=== PATIENT | female | born 1995 | race Caucasian/White ===

== ENCOUNTER → 2018-10-11 09:34 | Outpatient (CLI) | payer OTHER, MEDICAID, SELFPAY ==
[2018-10-11 10:18] LABS: Appearance Urine UA CLOUDY; Bilirubin Urine UA NEGATIVE (NEGATIVE); Color Urine UA YELLOW; Glucose Urine UA NEGATIVE (Negative); Ketones Urine UA NEGATIVE (NEGATIVE); Leukocyte Esterase Urine UA NEGATIVE (NEGATIVE); Nitrite Urine UA NEGATIVE (Negative); Occult Blood Urine UA NEGATIVE (Negative); Protein Urine UA NEGATIVE (Negative); Urobilinogen Urine UA 0.2 E.U./dL (0.2)
[2018-10-11 10:26] LABS: Add Manual Diff / Slide Review NO; Basophils Absolute Auto 0 /uL (0-100); Basophils Percent Auto 0.3 % (0-2); Eosinophils Absolute Auto 100 /uL (0-450); Eosinophils Percent Auto 1.2 % (2-4); Hematocrit 40.8 % (36-46); Hemoglobin 14.3 g/dL (12.0-16.0); Lymphocytes Absolute Auto 1500 /uL (1100-4500); Lymphocytes Percent Auto 16.9 % (25-40); Mean Corpuscular HGB Conc 35.1 % (30-36); Mean Corpuscular Hemoglobin 31.6 PG (26-34); Mean Corpuscular Volume 90.2 fL (80-100); Monocytes Absolute Auto 400 /uL (0-900); Monocytes Percent Auto 4.3 % (3-14); Neutrophils Absolute Auto 6900 /uL (1500-7000); Neutrophils Percent Auto 77.3 % (50-75); Platelet Count 234 X10^3/uL (150-400); Red Blood Cell Count 4.52 X10^6/uL (4.0-5.2)
[2018-10-11 11:33] LABS: Hepatitis B Surface Antigen NEGATIVE s/c (NEGATIVE); Rubella Antibody IgG 66.4 IU/mL (>15)
[2018-10-11 11:49] LABS: HIV 1 and 2 Antibody NEGATIVE (NEGATIVE); Hep C Virus Ab w/Reflex Quant NEGATIVE s/c (NEGATIVE)
[2018-10-13 18:13] LABS: Varicella IgG Antibody < 135.00 Index (< 135.00)
[2018-10-13 19:16] LABS: RPR Screen Nonreactive (Nonreactive)
== END ==
PROVIDERS: Visit Provider Family Medicine
DX: Z34.91 Encounter for supervision of normal pregnancy, unspecified, first trimester (principal)
CPT/HCPCS: 36415; 80055; 81003; 86703; 86787; 86803; 86850; 86900; 86901; 87086

== ENCOUNTER → 2018-12-26 09:05 | Outpatient (CLI) | payer OTHER, MEDICAID, SELFPAY ==
--- NOTE | 2018-12-26 09:06 | DI.US.S_ITS ---
PROCEDURE: US OB >= 14 WEEKS FETUS INDICATIONS: ANATOMIC SURVEY OUTSIDE/PRIOR DATING DATA: Last menstrual period (LMP): 08/09/18. LMP-based estimated date of delivery (LINDA): 05/16/19. First dating scan (date and location): 12/26/18, this study.. Estimated date of delivery (LINDA) from first dating scan: 05/10/19. TECHNIQUE: Real-time scanning was performed of the fetus, with image documentation and biometric measurements. Endovaginal scanning: Not needed for this study COMPARISON: None. FINDINGS: General: A single living intrauterine gestation is present. Presentation: Breech. Placenta: Placental position is without previa. Amniotic fluid index: 16.2 cm, normal range is 5-24 cm. heart rate: 150 beats per minute. Maternal cervical canal: 3.5 cm long. Normal lower limit is 2.5 cm. biometrics: Biparietal diameter: 4.8 cm, 20 weeks 3 days Head circumference: 18.1 cm, 20 weeks 4 days Abdominal circumference: 15.6 cm, 21 weeks 0 days Femur length: 3.4 cm, 20 weeks 5 days Estimated gestational age from initial scan: not applicable. Composite gestational age from present scan: 20 weeks 5 days 19 weeks 6 days Estimated weight and percentile: 380 g, 92nd percentile Measurement variability for biometric dating: +/- 7 days from 14 weeks to 15 weeks 6 days gestation, +/- 10 days from 16 weeks to 21 weeks 6 days gestation, +/- 2 weeks from 22 weeks to 27 weeks 6 days gestation, +/- 3 weeks for 28 weeks gestation or later. weight reference: 4500 g or EFW >90/95% is considered macrosomia or large for gestational age. EFW <10% is small for gestational age. EFW 5% or less is considered intra-uterine growth restriction. Anatomic survey: Neuro: Ventricles are non-dilated at less than 10 mm. Cisterna magna is normal at 3-11 mm. Cerebellum is normal in size and morphology. Nuchal skin fold: Normal at less than 6 mm between 14-21 weeks gestational age. Face: Nose and lips, facial profile are normal. Spine: No evidence for spina bifida. Heart: 4-chambered heart is present, with normal ventricular outflow tracts. Diaphragm: Diaphragm is intact. Stomach: Left-sided stomach is present. Kidneys: No hydronephrosis. Normal is less than 5 mm in 2nd trimester, less than 7 mm in 3rd trimester. Cord: 3-vessel cord has orthotopic insertion. Bladder: Normal in size. Extremities: All 4 extremities identified. IMPRESSION: Appropriate interval growth, no anomaly seen. The delivery date is centered on 05/10/19. Current presentation is breech. Dictated by: Jae Biswas M.D. on 12/26/2018 at 11:23 Approved by: Jae Biswas M.D. on 12/26/2018 at 11:27
== END ==
PROVIDERS: PCP Family Medicine; Visit Provider Family Medicine
DX: Z34.02 Encounter for supervision of normal first pregnancy, second trimester (principal); Z3A.20 20 weeks gestation of pregnancy
CPT/HCPCS: 76811

== ENCOUNTER → 2019-02-27 10:20 | Outpatient (CLI) | payer OTHER, MEDICAID, SELFPAY ==
[2019-02-27 12:03] LABS: Hematocrit 39.9 % (36-46); Hemoglobin 13.8 g/dL (12.0-16.0)
[2019-02-27 12:46] LABS: GTT (PREG) 1 Hour PP 50gm Dose 77 mg/dL (76-139)
== END ==
PROVIDERS: Visit Provider Family Medicine
DX: Z34.90 Encounter for supervision of normal pregnancy, unspecified, unspecified trimester (principal); Z3A.28 28 weeks gestation of pregnancy
CPT/HCPCS: 36415; 82950; 85014; 85018

== ENCOUNTER → 2019-04-24 08:25 | Outpatient (CLI) | payer OTHER, MEDICAID, SELFPAY ==
[2019-04-25 11:55] LABS: Strep Grp B PCR NEG for Grp B Strep
== END ==
PROVIDERS: PCP Nurse Practitioner Family; Visit Provider Family Medicine
DX: Z34.03 Encounter for supervision of normal first pregnancy, third trimester (principal); Z3A.36 36 weeks gestation of pregnancy
CPT/HCPCS: 87653

== ENCOUNTER 2019-05-14 07:51 | Inpatient (IN) | payer OTHER, MEDICAID, SELFPAY ==
[2019-05-14 11:51] VITALS: BP 110/70
[2019-05-14 11:52] LABS: Add Manual Diff / Slide Review NO; Basophils Absolute Auto 100 /uL (0-100); Basophils Percent Auto 0.3 % (0-2); Eosinophils Absolute Auto 0 /uL (0-450); Eosinophils Percent Auto 0.1 % (2-4); Hematocrit 47.2 % (36-46); Hemoglobin 16.7 g/dL (12.0-16.0); Lymphocytes Absolute Auto 1700 /uL (1100-4500); Lymphocytes Percent Auto 10.2 % (25-40); Mean Corpuscular HGB Conc 35.4 % (30-36); Mean Corpuscular Hemoglobin 32.7 PG (26-34); Mean Corpuscular Volume 92.3 fL (80-100); Monocytes Absolute Auto 300 /uL (0-900); Monocytes Percent Auto 1.9 % (3-14); Neutrophils Absolute Auto 14200 /uL (1500-7000); Neutrophils Percent Auto 87.5 % (50-75); Platelet Count 228 X10^3/uL (150-400); Red Blood Cell Count 5.12 X10^6/uL (4.0-5.2); Red Cell Distribution Width 12.8 % (11.6-14.8); White Blood Cell Count 16.2 X10^3/uL (4.5-11.0)
--- NOTE | 2019-05-14 11:59 | PM.OBHP.1 ---
OB HPI Date/Time Date of admission: 05/14/19 Date Patient Seen: 05/14/19 Time Patient Seen: 12:30 History of Present Condition Chief complaint: maternity : 1 Para: 0 Estimated Date of Delivery: 05/16/19 Estimated Gestational Age (weeks): 39w5d Narrative: Khadra Adame is a 23 year old at 39w5d who presented with regular painful contractions. Pt reports having mild contractions starting last night, increasing in frequency and intensity since that time. No LOF. No vaginal bleeding. History of Present care: good care, initiated at week # (9) and pounds weight gain (41) Dating criteria: LMP confirmed by 1st trimester US Ultrasounds: normal 1st trimester US and normal mid trimester US Obstetrical complications: none Medical complications: none Preadmission Labs Blood type: A (+) positive -: Antibody screen: negative, GBS status: negative, HBsAG: negative, HIV: negative and RPR/VDLR: negative -: Chlamydia screen: not detected and Gonorrhea screen: not detected -: Rubella: immune and Varicella: not immune HCT: 39.9 1 hr GTT: 77 Evaluation Evaluation Baseline heart rate: 130 Variability: Moderate (11-25) monitor accelerations: Present monitor decelerations: Absent Contraction Frequency (minutes): 3 Uterine Contraction Intensity: Strong/Firm Category of Tracing: I Cervical dilation (cm): 4 Cervical effacement (%): 100 station: 0 Laboratory results: Laboratory Tests 05/14/19 11:35 WBC 16.2 H RBC 5.12 Hgb 16.7 H Hct 47.2 H MCV 92.3 MCH 32.7 MCHC 35.4 RDW 12.8 Plt Count 228 Neut % (Auto) 87.5 H Lymph % (Auto) 10.2 L [place] % (Auto) 1.9 L Eos % (Auto) 0.1 L Baso % (Auto) 0.3 Neut # (Auto) 45975 H Lymph # (Auto) 1700 [place] # (Auto) 300 Eos # (Auto) 0 Baso # (Auto) 100 PFSH Family History (Updated 09/12/16 @ 00:00 by Conversion Provider) Brother Age: 29 Stress ulcer Father Age: 62 Essential hypertension Mother Age: 56 Cancer Social History Smoking Status: Former smoker Meds Home Medications and Allergies Home Medications Medication Instructions Recorded Confirmed Type omega 2-goo-mxp-fish oil [Fish Oil] 1,000 mg PO 1-2XD #0 01/30/17 05/14/19 History prenat.vits,naya,yjl-lbas-cehhz 1 tab PO DAILY 10/09/18 05/14/19 History Allergies Allergy/AdvReac Type Severity Reaction Status Date / Time amoxicillin Allergy Intermediate Difficulty Verified 05/14/19 14:19 Breathing cilantro Allergy Severe tougue Uncoded 04/24/19 08:24 swells, hard time breathing Exam Vital Signs (past 8 hours): - 05/14/19 11:51 Blood Pressure 110/70 Const General: cooperative and healthy appearing Orientation: alert and oriented x3 Resp Auscultation: clear to auscultation bilaterally Cardio Rate: regular rate Rhythm: regular rhythm Heart Sounds: S1 normal and S2 normal GI Palpation: No tender Other: gravid Extrem Other: trace edema Objective Labs Result Diagrams: 05/14/19 11:35 Labs: Laboratory Results - last 24 hr 05/14/19 11:35 WBC 16.2 H RBC 5.12 Hgb 16.7 H Hct 47.2 H MCV 92.3 MCH 32.7 MCHC 35.4 RDW 12.8 Plt Count 228 Neut % (Auto) 87.5 H Lymph % (Auto) 10.2 L [place] % (Auto) 1.9 L Eos % (Auto) 0.1 L Baso % (Auto) 0.3 Neut # (Auto) 42065 H Lymph # (Auto) 1700 [place] # (Auto) 300 Eos # (Auto) 0 Baso # (Auto) 100 Assessment and Plan Assessment and Plan Assessment and Plan narrative: 23yo at 39w5d who presented in active labor. Change from 2 to 4cm over 2 hours. without significant complications. GBS negative, Rh positive. - Expectant management, anticipate - FHT reassuring - GBS negative, no antibiotics indicated - Epidural for pain control if desired
--- NOTE | 2019-05-14 14:59 | PM.OBPRVD ---
Labor & Delivery Delivery date: 05/14/19 Intrapartal events: None Cervical ripening method: none Induction method: none Delivery augmentation: rupture of membranes Delivery monitor: external FHT Route of delivery: Episiotomy description: None L&D Laceration Description: Perineal - 2nd Degree and Labial Delivery repair: chromic Estimated blood loss (mL): 350 Anesthesia type: None Complications: None Narrative: PROCEDURE: at 38w5d presented in active labor and was admitted to Labor and Delivery. The patient progressed through the 1st stage over 1.5 hours in the hospital, 10 hours total. Pain was controlled by natural methods. The patient progressed through the 2nd stage over 13 minutes. AROM was performed when the pt was crowing with production of clear fluid. The pt delivered a viable baby girl with APGARs 9/9 at 12:28 via without complications. The baby was placed on maternal abdomen, and cord clamped and cut after it stopped pulsations. The perineum and vagina were inspected with bilateral labial lacerations and 2nd degree perineal laceration noted. The right sided labial laceration and perineal laceration were repaired with 3-O chromic in the usual fashion. Left labial laceration was not repaired due to already being hemostatic. PREPROCEDURE DIAGNOSIS: Intrauterine at 39w5d GBS negative RH positive POSTPROCEDURE DIAGNOSIS: Intrauterine at 39w5d, delivered Same as preprocedure ROM APPEARANCE: Clear BABY A WEIGHT: 6lb8.8oz, 2970g BABY A NUCHAL CORD: None PLACENTA DELIVERY TIME: 12:31 PLACENTA APPEARANCE: Intact Felt Baby 1: Infant gender: Female Presentation: vertex position: Right Occiput Anterior Placenta delivery description: Spontaneous cord vessel description: 3 Vessels score (1 min): 9 score (5 min): 9 Plan for aftercare: Normal care
[2019-05-14] MEDS: IBUPROFEN 600 MG TABLET PO ×2 (16:13→22:18)
[2019-05-15] MEDS: IBUPROFEN 600 MG TABLET PO ×3 (03:00→15:46)
--- NOTE | 2019-05-15 08:10 | P.DS_ITS ---
Discharge Providers Provider Date of admission: 05/14/19 07:51 Discharge Date: 05/15/19 Primary care physician: DIANA Stiles Consults: 05/15/19 13:42 Consult to Gps Field Data Collector Routine Comment: Discharge provider: Iman Rosales MD Summary Hospital Course Date Patient Seen: 05/15/19 Time Patient Seen: 07:40 Procedures: Spontaneous vaginal delivery Hospital Course: The patient presented in active labor. She progressed to complete without intervention. She used natural methods for pain control. AROM was performed with the patient was crying with production of clear fluid. She had a spontaneous vaginal delivery of a viable baby girl with Apgars 9 and 9. There are no complications with delivery. , she recovered well. At the time of discharge she was ambulating, voiding, passing flatus without difficulty. Her lochia was decreasing appropriately. Her pain was adequately controlled. She was breast-feeding with good latch. She will follow up with Dr. Byrd in 6 weeks for check. She is undecided regarding control. Peripartum Data Infant Delivery Method: Natural Vaginal Laceration description: Perineal - 2nd Degree Episiotomy description: None Procedures: Spontaneous vaginal delivery complications: none Nov[place] 1: Gender: Female Disposition of : home Discharge Diagnosis (1) Spontaneous vaginal delivery: Status: Acute Status at Discharge Cognitive/behavioral status at discharge: oriented Functional status at discharge: independent ambulation Overall status at discharge: patient is progressing back to baseline Time Spent with Patient Time attestation: Total time spent providing and/or coordinating discharge services: Time spent: Greater than 30 minutes Objective Labs Result Diagrams: 05/14/19 11:35 Labs: Laboratory Results - last 24 hr 05/14/19 05/14/19 11:35 11:35 WBC 16.2 H RBC 5.12 Hgb 16.7 H Hct 47.2 H MCV 92.3 MCH 32.7 MCHC 35.4 RDW 12.8 Plt Count 228 Neut % (Auto) 87.5 H Lymph % (Auto) 10.2 L [place] % (Auto) 1.9 L Eos % (Auto) 0.1 L Baso % (Auto) 0.3 Neut # (Auto) 74164 H Lymph # (Auto) 1700 [place] # (Auto) 300 Eos # (Auto) 0 Baso # (Auto) 100 Blood Type A Positive Antibody Screen Negative Discharge Plan Discharge Plan Patient Disposition: Home Discharge orders & Medications Prescriptions: New acetaminophen 325 mg Tablet 650 mg PO Q6HR PRN (Reason: Pain, Mild (1-3)) Qty: 30 RF: 0 docusate sodium [DOK] 100 mg Capsule 100 mg PO DAILY Qty: 30 RF: 0 ibuprofen 600 mg Tablet 600 mg PO Q6HR PRN (Reason: Pain, Mild (1-3)) Qty: 30 RF: 0 Continued omega 0-nnt-lyd-fish oil [Fish Oil] 1,000 MG capsule 1,000 mg PO 1-2XD Qty: 0 RF: 0 prenat.vits,naya,nfe-jrwj-lavql tablet 1 tab PO DAILY RF: 0 Follow up/Referrals: Guille Byrd MD [Physician] - 6 Weeks (June 25, Monday, at 10am with Dr. Byrd for 6 week post check) Wendi Martinez ARNP [Primary Care Provider] - Skin/Wound/Dressing Care Report to your healthcare provider any signs of infection, such as:: chills, fever, increased pain and unusual drainage Visit Report/Discharge Packet Instructions: DI for Labor and Delivery, Vaginal Stand Alone Forms: Discharge: Care Visit Report Forms: Patient Portal/API, Stroke Signs & Symptoms Discharge Data Primary Care Provider: Wendi Martinez
[2019-05-15 10:01] VITALS: BP 122/80; PULSE 63; RESP 19; TEMP 36.8
[2019-05-15] MEDS: PRENATAL VIT,CALC/IRON/FOLIC 1 TABLET 1 TAB PO (10:23)
[2019-05-15] MEDS: DERMOPLAST SPRAY 20% 60 ML 1 SPRAY TOP (10:24)
== END 2019-05-15 16:00 | disposition home or self-care (01) | DRG 560 ==
PROVIDERS: Family Medicine; Admitting Provider Family Medicine; PCP Nurse Practitioner Family; Visit Provider Family Medicine
DX: O70.1 Second degree perineal laceration during delivery (principal); O70.0 First degree perineal laceration during delivery; Z3A.39 39 weeks gestation of pregnancy; Z37.0 Single live birth
CPT/HCPCS: 36415; 59050; 59409; 85025; 86850; 86900; 86901; G0379

== ENCOUNTER → 2020-03-06 08:52 | Outpatient (CLI) | payer OTHER, MEDICAID, SELFPAY ==
--- NOTE | 2020-03-06 | DI.MRI.S_ITS ---
PROCEDURE: MR SHOULDER RT WO CON INDICATIONS: pain in right shoulder TECHNIQUE: Noncontrast oblique coronal T2 fast spin echo with fat saturation, oblique sagittal T1 spin echo and T2 fast spin echo with fat saturation, axial T1 spin echo and T2 fast spin echo with fat saturation through the shoulder. COMPARISON: None. FINDINGS: Image quality: Excellent. Rotator cuff: The supraspinatus, infraspinatus, subscapularis, and teres minor appear intact. There is magnetic susceptibility within the distal superior cuff suggestive of calcific tendinitis. Sagittal images demonstrate no fatty muscle atrophy. Bones and bursae: No bone marrow contusions or fractures. There is wnlz-nv-jpyrbwmh acromioclavicular joint degeneration. The acromion demonstrates conventional anatomy, without an os acromiale. Minimal subacromial-subdeltoid bursal fluid is present. Capsule and soft tissues: There is tearing within the superior, posterosuperior, and posterior labrum. In the absence of intra-articular contrast, the glenohumeral ligaments appear intact. The long head of the biceps tendon demonstrates normal location and morphology. The rotator interval appears normal, without fibrosis. The coracohumeral ligament is normal in thickness. IMPRESSION: 1. Tearing of the superior, posterosuperior, and posterior labrum with evaluation limited in the absence of intra-articular contrast. Further evaluation may be obtained with an MR arthrogram if clinically indicated. 2. Mild magnetic susceptibility within the distal superior cuff suggestive of calcific tendinitis. 3. Mild to moderate acromioclavicular joint degeneration with minimal subacromial/subdeltoid bursal fluid. Dictated by: Everton Root M.D. on 03/06/2020 at 11:05 Approved by: Everton Root M.D. on 03/06/2020 at 11:14
== END ==
PROVIDERS: PCP Nurse Practitioner Family; Referring Provider Nurse Practitioner Family; Visit Provider Nurse Practitioner Family
DX: M25.511 Pain in right shoulder (principal); M19.011 Primary osteoarthritis, right shoulder; S43.431A Superior glenoid labrum lesion of right shoulder, initial encounter
CPT/HCPCS: 73221

== ENCOUNTER → 2020-08-18 11:32 | Outpatient (CLI) | payer OTHER, MEDICAID, SELFPAY ==
[2020-08-18 12:54] LABS: Appearance Urine UA CLEAR; Bilirubin Urine UA NEGATIVE (NEGATIVE); Color Urine UA YELLOW; Glucose Urine UA NEGATIVE (Negative); Ketones Urine UA NEGATIVE (NEGATIVE); Leukocyte Esterase Urine UA NEGATIVE (NEGATIVE); Nitrite Urine UA NEGATIVE (Negative); Occult Blood Urine UA NEGATIVE (Negative); Protein Urine UA NEGATIVE (Negative); Specific Gravity Urine UA 1.015 (1.000-1.035); Urobilinogen Urine UA 0.2 E.U./dL (0.2)
[2020-08-18 12:57] LABS: Add Manual Diff / Slide Review NO; Basophils Absolute Auto 0 /uL (0-100); Basophils Percent Auto 0.4 % (0-2); Eosinophils Absolute Auto 100 /uL (0-450); Eosinophils Percent Auto 0.9 % (2-4); Hematocrit 38.9 % (36-46); Hemoglobin 13.2 g/dL (12.0-16.0); Lymphocytes Absolute Auto 1800 /uL (1100-4500); Lymphocytes Percent Auto 19.8 % (25-40); Mean Corpuscular HGB Conc 33.9 % (30-36); Mean Corpuscular Hemoglobin 31.6 PG (26-34); Mean Corpuscular Volume 93.3 fL (80-100); Monocytes Absolute Auto 300 /uL (0-900); Monocytes Percent Auto 3.6 % (3-14); Neutrophils Absolute Auto 6900 /uL (1500-7000); Neutrophils Percent Auto 75.3 % (50-75); Platelet Count 226 X10^3/uL (150-400); Red Blood Cell Count 4.17 X10^6/uL (4.0-5.2); Red Cell Distribution Width 14.2 % (11.6-14.8); White Blood Cell Count 9.1 X10^3/uL (4.5-11.0)
[2020-08-18 13:42] LABS: Hepatitis B Surface Antigen NEGATIVE s/c (NEGATIVE); Rubella Antibody IgG 44.3 IU/mL (>15)
[2020-08-18 13:59] LABS: HIV 1 & 2 Ab/Ag 4th Gen Combo NEGATIVE (NEGATIVE); Hep C Virus Ab w/Reflex Quant NEGATIVE s/c (NEGATIVE)
[2020-08-19 07:34] LABS: Varicella IgG Antibody <135 index (Immune >165)
[2020-08-19 08:30] LABS: RPR Screen Non Reactive (Non Reactive)
== END ==
PROVIDERS: PCP Nurse Practitioner Family; Referring Provider Family Medicine; Visit Provider Family Medicine
DX: Z34.81 Encounter for supervision of other normal pregnancy, first trimester (principal)
CPT/HCPCS: 36415; 80055; 81003; 86787; 86803; 86850; 86900; 86901; 87086; 87389

== ENCOUNTER → 2020-09-08 10:04 | Outpatient (CLI) | payer OTHER, MEDICAID, SELFPAY ==
--- NOTE | 2020-09-08 10:05 | DI.US.S_ITS ---
PROCEDURE: US OB >= 14 WEEKS FETUS INDICATIONS: ANATOMY OUTSIDE/PRIOR DATING DATA: First dating scan (date and location): 09/08/2020 . Estimated date of delivery (LINDA) from first dating scan: 01/23/2021 . TECHNIQUE: Real-time scanning was performed of the fetus, with image documentation and biometric measurements. Endovaginal scanning: No COMPARISON: [facility], , OB >= 14 WEEKS FETUS, 12/26/2018, 9:27. FINDINGS: General: A single living intrauterine gestation is present. Presentation: Transverse. Placenta: Placental position is anterior , without previa. Amniotic fluid index: 18.1 cm, normal range is 5-24 cm. heart rate: 155 beats per minute. Maternal cervical canal: 3.4 cm long. Normal lower limit is 2.5 cm. biometrics: Biparietal diameter: 21 weeks Head circumference: 20 weeks 5 days Abdominal circumference: 20 weeks 2 days Femur length: 19 weeks 5 days Estimated gestational age from initial scan: not applicable. Composite gestational age from present scan: 20 weeks 3 days Estimated weight and percentile: 331 g Measurement variability for biometric dating: +/- 7 days from 14 weeks to 15 weeks 6 days gestation, +/- 10 days from 16 weeks to 21 weeks 6 days gestation, +/- 2 weeks from 22 weeks to 27 weeks 6 days gestation, +/- 3 weeks for 28 weeks gestation or later. weight reference: 4500 g or EFW >90/95% is considered macrosomia or large for gestational age. EFW <10% is small for gestational age. EFW 5% or less is considered intra-uterine growth restriction. Anatomic survey: Neuro: Ventricles are non-dilated at less than 10 mm. Cisterna magna is normal at 3-11 mm. Cerebellum is normal in size and morphology. Nuchal skin fold: Normal at less than 6 mm between 14-21 weeks gestational age. Face: Nose and lips, facial profile are normal. Spine: No evidence for spina bifida. Heart: 4-chambered heart is present, with normal ventricular outflow tracts. Diaphragm: Diaphragm is intact. Stomach: Left-sided stomach is present. Kidneys: No hydronephrosis. Normal is less than 5 mm in 2nd trimester, less than 7 mm in 3rd trimester. Cord: 3-vessel cord has orthotopic insertion. Bladder: Normal in size. Extremities: All 4 extremities identified. IMPRESSION: 1. 20 week 3 day single living IUP. 2. Normal anatomic survey. Dictated by: Greg GUNTER Interpreted: Guille Lorenz MD on 09/08/2020 at 13:02 Approved by: Guille Lorenz M.D. on 09/08/2020 at 14:08
== END ==
PROVIDERS: PCP Nurse Practitioner Family; Referring Provider Family Medicine; Visit Provider Family Medicine
DX: Z34.82 Encounter for supervision of other normal pregnancy, second trimester (principal); Z3A.20 20 weeks gestation of pregnancy
CPT/HCPCS: 76811

== ENCOUNTER → 2020-11-09 10:28 | Outpatient (CLI) | payer OTHER, MEDICAID, SELFPAY ==
[2020-11-09 12:22] LABS: Hematocrit 40.4 % (36-46); Hemoglobin 14.1 g/dL (12.0-16.0)
[2020-11-09 13:06] LABS: GTT (PREG) 1 Hour PP 50gm Dose 52 mg/dL (76-139)
== END ==
PROVIDERS: PCP Nurse Practitioner Family; Referring Provider Family Medicine; Visit Provider Family Medicine
DX: Z34.82 Encounter for supervision of other normal pregnancy, second trimester (principal); Z3A.25 25 weeks gestation of pregnancy
CPT/HCPCS: 36415; 82950; 85014; 85018

== ENCOUNTER → 2020-12-29 08:45 | Outpatient (CLI) | payer OTHER, MEDICAID, SELFPAY ==
[2020-12-30 08:20] LABS: Strep Grp B PCR NEG for Grp B Strep
== END ==
PROVIDERS: PCP Nurse Practitioner Family; Visit Provider Family Medicine
DX: Z34.83 Encounter for supervision of other normal pregnancy, third trimester (principal); Z3A.36 36 weeks gestation of pregnancy
CPT/HCPCS: 87653

== ENCOUNTER 2021-01-30 16:58 | Inpatient (IN) | payer OTHER, MEDICAID, SELFPAY ==
[2021-01-30 19:45] LABS: Add Manual Diff / Slide Review NO; Basophils Absolute Auto 100 /uL (0-100); Eosinophils Absolute Auto 100 /uL (0-450); Eosinophils Percent Auto 0.6 % (2-4); Hematocrit 41.7 % (36-46); Hemoglobin 14.3 g/dL (12.0-16.0); Lymphocytes Absolute Auto 2600 /uL (1100-4500); Lymphocytes Percent Auto 21.7 % (25-40); Mean Corpuscular HGB Conc 34.4 % (30-36); Mean Corpuscular Hemoglobin 31.9 PG (26-34); Mean Corpuscular Volume 92.9 fL (80-100); Monocytes Absolute Auto 500 /uL (0-900); Monocytes Percent Auto 4.5 % (3-14); Neutrophils Absolute Auto 8600 /uL (1500-7000); Neutrophils Percent Auto 72.2 % (50-75); Platelet Count 168 X10^3/uL (150-400); Red Blood Cell Count 4.49 X10^6/uL (4.0-5.2); Red Cell Distribution Width 12.9 % (11.6-14.8)
[2021-01-30] MEDS: OXYTOCIN 10 UNIT/ML VIAL IM (19:58)
[2021-01-30] MEDS: LIDOCAINE 2% INJ MDV 20 ML (19:58)
[2021-01-30] MEDS: miSOPROStoL 200 MCG TABLET 1000 MCG PR (20:20)
[2021-01-30] MEDS: OXYTOCIN PREMIX 30 UNIT/500 ML PLAST..BAG 200 UNIT IV (20:30)
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
[2021-01-30] MEDS: TRANEXAMIC ACID 1,000 MG in SODIUM CHLORIDE 0.9% 100 ML 200 ML IV ×2 (20:50→23:10)
--- NOTE | 2021-01-30 20:59 | PM.PROC.1 ---
Procedures Date/Time Date of procedure: 01/30/21 Time of procedure: 21:00 General Procedure description: Delivery of viable male infant hemorrhage approximately IM Pitocin 10 units at delivery. Rectal Cytotec. TXA as well as Pitocin 30 units. Despite this bleeding was not controlled and patient was taken to the OR Stage I of labor approximately 3 hours: Patient rapidly progressed from 2-5 to complete over 3 hours. Patient's heart tones were normal throughout vital signs were stable and patient was afebrile. Patient had no rupture of membranes or bleeding or spotting. Patient required no anesthesia or pain medication. Category of tracing is 1 and 2. Due to the rapidity of her labor blood was drawn patient did not have an IV started as she was out walking. And then became uncomfortable and complete. Stage II of labor approximately 10 minutes with 2 pushes. Patient became complete had rupture of membranes and then immediately pushed the baby out. Baby was delivered spontaneously in the 1st checks position with occiput anterior position there was no nuchal cord. After delivery of the head the shoulders came out without difficulty. Baby was delivered onto mother's abdomen. Delayed cord clamping was done and 10 units of I am Pitocin was given cord was then cut transected. Baby had a loss T cry and was vigorous and active. Stage III of labor approximately 8 minutes. Patient had delivery of an intact placenta with three-vessel cord. Patient had repair of a first-degree midline perineal tear. Patient had expect of her vagina and no source of vaginal bleeding was seen. Cervix was difficult to visualize due to patient having unblocked and uncomfortableness. Patient has some mild periurethral abrasions that did not need to be repaired. After the delivery of the placenta. Patient had continuous mild to moderate bleeding. Patient felt like her bladder was full so a single lumen Krause catheter was done in an out and had approximately 350 cc of urine out of her bladder. Patient had good uterine tightness and fundal massage continued despite this patient continued to have bleeding. At that point an IV was started. She was given rectal Cytotec 1000 mg and IV Pitocin 30 units was started. She continued to have a firm fundal and she continued passage of mild to moderate bleeding. At that point patient was given a dose of TXA per protocol. Patient's vital signs were checked frequently throughout. She was hemodynamically stable. She was asymptomatic with dizziness and lightheadedness. She was breast-feeding. Baby was doing well afterwards Apgars 9 and 9.
[2021-01-30 22:24] LABS: COVID19 - ADMIT (NP swab/PCR) Negative (Negative)
[2021-01-30] MEDS: CLINDAMYCIN 900 MG/50 ML PIGGYBACK 50 MG IV (22:45)
--- NOTE | 2021-01-30 22:51 | SUR.OPER ---
Lithotomy on padded OR bed, head on pillow, arms secured on padded arm boards at <90 degrees abduction. Legs secured in padded yellow fins stirrups.
[2021-01-30] MEDS: LACTATED RINGERS 1,000 ML 100 ML IV ×2 (22:58→23:13)
[2021-01-30 23:15] VITALS: BP 138/88; PULSE 76; RESP 14; TEMP 36.9; O2SAT 98
--- NOTE | 2021-01-30 23:18 | PM.CN ---
History of Present Illness Consult details Date Patient Seen: 01/30/21 Time Patient Seen: 22:45 Chief complaint: hemorrhage Reason for consult: hemorrhage Requesting provider: Guille Byrd Narrative: Patient arrived on Labor and delivery in active labor and had a spontaneous vaginal delivery. She had spontaneous delivery of her placenta but continued to have bleeding despite uterotonics. Meds Home Medications and Allergies Home Medications Medication Instructions Recorded Confirmed Type omega 7-ieh-fvu-fish oil 1,000 mg 1,000 mg PO 1-2XD #0 01/30/17 01/26/21 History (120 mg-180 mg) capsule (Fish Oil) prenat.vits,naya,xxy-ixka-mbnsy 1 tab PO DAILY 10/09/18 01/26/21 History magnesium citrate 125 mg capsule 125 mg PO DAILY 06/16/20 01/26/21 History Allergies Allergy/AdvReac Type Severity Reaction Status Date / Time amoxicillin Allergy Intermediate Difficulty Verified 01/26/21 08:50 Breathing cilantro Allergy Severe tougue Uncoded 01/26/21 08:50 swells, hard time breathing Exam Narrative Exam Narrative: Patient with firm fundus but continued to pass clots Objective Labs Result Diagrams: 01/30/21 19:30 Labs: Laboratory Results - last 24 hr 01/30/21 01/30/21 01/30/21 19:15 19:30 19:30 WBC 12.0 H RBC 4.49 Hgb 14.3 Hct 41.7 MCV 92.9 MCH 31.9 MCHC 34.4 RDW 12.9 Plt Count 168 Neut % (Auto) 72.2 Lymph % (Auto) 21.7 L [place] % (Auto) 4.5 Eos % (Auto) 0.6 L Baso % (Auto) 1.0 Neut # (Auto) 8600 H Lymph # (Auto) 2600 [place] # (Auto) 500 Eos # (Auto) 100 Baso # (Auto) 100 SARS-CoV-2 (PCR) Negative Blood Type A Positive Antibody Screen Negative Crossmatch See Detail Assessment & Plan Assessment and plan (1) hemorrhage, condition: Status: Acute Assessment & Plan narrative: Patient with hemorrhage of unclear etiology decision was made to proceed with evaluation in the operating room with uterine curettage and probable placement of uterine tamponade balloon. Time Spent With Patient Time with patient: less than 15 minutes
--- NOTE | 2021-01-30 23:21 | PM.OP.1 ---
Operative Date/Time/Diagnoses Date of procedure: 01/30/21 Time of procedure: 23:21 Pre-op diagnosis: hemorrhage Post-op diagnosis: same Procedure & Clinicians Procedure: Exam under anesthesia, uterine curettage, placement of uterine tamponade balloon Same procedure as scheduled: Yes Indications: Patient with hemorrhage after delivery spontaneous delivery and spontaneous delivery of placenta Surgeon: Gely Hester Click Yes if Unassisted: Yes Anesthesia Type: General Operative Notes Findings: The cervix and vagina appear to be intact without active bleeding. Curettings removed a few small pieces of probable retained placenta and membranes. Periurethral tear on the right side. First-degree vaginal tear prior repair remained intact. Closure Type: primary Specimen(s): none sent Applied: other (Uterine tamponade balloon) Estimated Blood Loss (mL): 300 Procedure in detail: Patient was brought to the operating room where she underwent general anesthesia. [facility] was [facility] and prepped and draped in usual sterile fashion. Her bladder was drained with a red rubber catheter. Warming was in place. IV clindamycin was in prior to beginning of the case. Pulsatile stockings were in place and functional. A check system was reviewed with staff in the room prior to beginning the case. Retractors were used to examine the entire vagina and ring forceps placed around the cervix with no active bleeding seen and either the vagina or cervix. A uterine curette was placed through the cervix into the uterus and curettage performed. There was really not much tissue evident on curettage removed. The uterine tamponade balloon was placed and inflated with 300 cc of saline. The periurethral tear was repaired with 3 0 chromic suture. Bleeding seemed to be under control. Patient went to recovery room in stable condition. Counts of instruments and sponges were correct. Complications: none Post-operative Condition: stable Disposition: other ( Center) Plan for aftercare: Patient will be monitored for bleeding. After 12 hours the uterine tamponade balloon will begin to be deflated
[2021-01-30 23:22] VITALS: BP 127/89; PULSE 67; RESP 11; O2SAT 98
[2021-01-30 23:25] VITALS: BP 118/86; PULSE 83; RESP 11; O2SAT 98
[2021-01-31] VITALS (8 sets, daily range): BP systolic 108–139; BP diastolic 81–93; PULSE 70–136; RESP 1–12; TEMP 36.2; O2SAT 98–100
[2021-01-31 00:18] LABS: Hemoglobin 12.2 g/dL (12.0-16.0)
[2021-01-31] MEDS: METHYLERGONOVINE 0.2 MG TABLET PO (00:40)
[2021-01-31] MEDS: ACETAMINOPHEN 325 MG TABLET 650 MG PO ×3 (01:00→21:21)
[2021-01-31] MEDS: IBUPROFEN 600 MG TABLET PO (01:00)
[2021-01-31] MEDS: HYDROCODONE/ACET 5/325 TABLET 1 TAB PO (01:00)
[2021-01-31] MEDS: CARBOPROST 250 MCG/ML AMPUL IM (03:45)
--- NOTE | 2021-01-31 04:29 | PM.PREOP ---
Pre-operative Note COVID-19 COVID-19 status: Negative Result date/Date tested (Pos, Neg/Pending): 01/30/21 Interval Note History & Physical reviewed/Exam performed by Physician: Yes Changes to H&P: Yes H&P completed within 30 days and has changed as indicated here:: Continued bleeding , Bakri balloon has shifted into vagina
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
[2021-01-31] MEDS: DIPHENOXYLATE/ATROP 2.5/0.025 TABLET 1 EACH PO (04:44)
[2021-01-31 04:49] LABS: Hematocrit 34.1 % (36-46); Hemoglobin 11.8 g/dL (12.0-16.0); Mean Corpuscular HGB Conc 34.7 % (30-36); Mean Corpuscular Hemoglobin 32.2 PG (26-34); Mean Corpuscular Volume 92.8 fL (80-100); Platelet Count 241 X10^3/uL (150-400); Red Blood Cell Count 3.67 X10^6/uL (4.0-5.2); Red Cell Distribution Width 13.2 % (11.6-14.8); White Blood Cell Count 25.8 X10^3/uL (4.5-11.0)
[2021-01-31 04:50] LABS: Add Manual Diff / Slide Review YES
[2021-01-31 04:55] LABS: Prothrombin Time 10.7 SECONDS (10.1-12.7)
[2021-01-31 05:08] LABS: PTT Partial Thromboplastin Tim 26 SECONDS (26.4-36.2)
[2021-01-31 05:14] LABS: Fibrinogen 379 mg/dL (211-428)
[2021-01-31] MEDS: LACTATED RINGERS 1,000 ML 100 ML IV ×2 (05:22→06:03)
--- NOTE | 2021-01-31 05:24 | SUR.OPER ---
Lithotomy on padded OR bed, head on pillow, arms secured on padded arm boards at <90 degrees abduction. Legs secured in padded yellow fins stirrups.
[2021-01-31] MEDS: METHYLERGONOVINE 0.2 MG/ML VIAL IM (05:54)
[2021-01-31] MEDS: fentaNYL 100 MCG/2 ML INJ IV (06:44)
[2021-01-31] MEDS: HYDROMORPHONE 2 MG INJ 0.5 MG IV (06:44)
[2021-01-31] MEDS: ONDANSETRON 4 MG/2 ML INJ IV (06:47)
[2021-01-31 06:52] LABS: Neutrophils Absolute Manual 24510 /uL (3000-5900); RBC Morphology Normal Morphology; Total Cells Counted 100
--- NOTE | 2021-01-31 06:52 | PM.OP.1 ---
Operative Date/Time/Diagnoses Date of procedure: 01/31/21 Time of procedure: 06:52 Pre-op diagnosis: Hemorrhaging post despite D and C and uterine tamponade balloon Post-op diagnosis: same Procedure & Clinicians Procedure: Laparotomy, hysterotomy, replacement uterine tamponade balloon Same procedure as scheduled: Yes Indications: Continued bleeding after vaginal delivery, a D&C with placement of uterine tamponade balloon Surgeon: Gely Hester Click Yes if Unassisted: Yes Anesthesia Type: General Operative Notes Findings: No vaginal or cervical tears. Bleeding from fundus of the uterus. Closure Type: primary Specimen(s): none sent Applied: catheter (Krause) Estimated Blood Loss (mL): 500 Blood products transfused: none Procedure in detail: The patient was brought to the operating room where she underwent general anesthesia. She was placed in a supine position in low [place] stirrups. A Krause catheter was in place. Pulsatile stockings were placed and functional throughout the case. Warming was in place with Benjamin Hugger. The patient was prepped and draped in usual sterile fashion. A low transverse incision was made with a scalpel and the incision was carried down to the fascial layer which was incised transversely with scissors. The midline attachments are superiorly and inferiorly. The rectus muscles were in the midline and the peritoneal incision was made with no damage to internal structures. The peritoneum was incised and superiorly and inferiorly. The incision was stretched with the surgeon and assistant professor of business placing traction. Bladder blade was placed and a bladder flap was developed and the bladder held away from the lower uterine segment. An incision was made in the uterus with the scalpel. The uterus was examined. There was bleeding from the right fundus. There did not appear to be any retained products. The uterine tamponade balloon was placed and 120 cc placed in the balloon. The uterine incision was closed in 2 layers of 0 chromic suture the first a running locking layer the second an imbricating layer. The bladder peritoneum was repaired with 2-0 Vicryl suture. Holding the uterine tamponade balloon in placed through the uterus 180 cc more fluid was placed into the balloon. The peritoneum was closed with 2-0 Vicryl suture. The fascia layer was closed with 0 Vicryl suture. The incision was irrigated and adequate hemostasis noted. The incision was closed with interrupted 3-0 Vicryl sutures and then a subcuticular stitch of 4-0 Vicryl suture. Steri-Strips were placed. The patient was redraped for vaginal exam. The vagina and cervix were again examined without any hairs or bleeding. Bleeding appeared to be controlled with the balloon. The patient went to recovery room in stable condition. Counts of instruments and sponges were correct. Complications: none Post-operative Condition: stable Disposition: other ( Center) Plan for aftercare: Monitor for bleeding. 1 more dose of clindamycin. After 12 hours begin deflating the uterine tamponade balloon.
[2021-01-31] MEDS: OXYCODONE/ACETAMINOPHEN 5/325 TABLET 1 TAB PO (07:08)
[2021-01-31] MEDS: CLINDAMYCIN 900 MG/50 ML PIGGYBACK 50 MG IV ×2 (08:54→17:18)
[2021-01-31] MEDS: KETOROLAC 30 MG/ML VIAL IV ×3 (08:55→21:21)
[2021-01-31] MEDS: LACTATED RINGERS 1,000 ML 125 ML IV (09:00)
[2021-01-31 09:23] LABS: Hematocrit 30.3 % (36-46); Hemoglobin 10.2 g/dL (12.0-16.0)
[2021-01-31] MEDS: LANOLIN OINT 7 GM 1 APPLIC TOP (12:07)
[2021-01-31] MEDS: OXYCODONE IR 5 MG TABLET PO ×2 (12:08→12:38)
[2021-01-31] MEDS: OXYCODONE IR 10 MG TABLET PO ×2 (17:13→21:20)
[2021-01-31 17:35] LABS: Mean Corpuscular HGB Conc 33.6 % (30-36); Mean Corpuscular Hemoglobin 31.5 PG (26-34); Mean Corpuscular Volume 93.7 fL (80-100); Platelet Count 203 X10^3/uL (150-400); Red Blood Cell Count 2.32 X10^6/uL (4.0-5.2); Red Cell Distribution Width 13.2 % (11.6-14.8); White Blood Cell Count 29.8 X10^3/uL (4.5-11.0)
[2021-01-31 17:41] LABS: Prothrombin Time 11.4 SECONDS (10.1-12.7)
[2021-01-31 17:47] LABS: Add Manual Diff / Slide Review YES; Hematocrit 21.7 % (36-46); Hemoglobin 7.3 g/dL (12.0-16.0)
--- NOTE | 2021-01-31 17:58 | PM.OBPN.1 ---
Subjective - OB Subjective Patient comments: pain well controlled and tolerating diet [place] baby status: doing well and nursing well [place] feeding status: exclusively breast feeding Date Patient Seen: 01/31/21 Time Patient Seen: 17:59 Interval history: Patient is postop laparotomy with hysterotomy for hemorrhage after D&C and placement uterine tamponade balloon. Patient states she is feeling well. No headaches, scotomata, epigastric pain. Pain is under control. Exam Vital Signs (past 8 hours): Oxygen Delivery Method Room Air Narrative Exam Narrative: Patient's abdomen is soft, nontender. Uterus is firm, at U, nontender. Dressing is clean, dry, intact. No no significant vaginal bleeding. Extremities with minimal edema and nontender. Objective Labs Result Diagrams: 01/31/21 17:25 Labs: Laboratory Results - last 24 hr 01/30/21 01/30/21 01/30/21 19:15 19:30 19:30 WBC 12.0 H RBC 4.49 Hgb 14.3 Hct 41.7 MCV 92.9 MCH 31.9 MCHC 34.4 RDW 12.9 Plt Count 168 Neut % (Auto) 72.2 Lymph % (Auto) 21.7 L [place] % (Auto) 4.5 Eos % (Auto) 0.6 L Baso % (Auto) 1.0 Neut # (Auto) 8600 H Lymph # (Auto) 2600 [place] # (Auto) 500 Eos # (Auto) 100 Baso # (Auto) 100 Total Counted Seg Neutrophils % Lymphocytes % (Manual) Monocytes % (Manual) Neutrophils # (Manual) RBC Morphology PT INR APTT Fibrinogen SARS-CoV-2 (PCR) Negative Blood Type A Positive Antibody Screen Negative Crossmatch See Detail 01/31/21 01/31/21 01/31/21 00:10 04:37 04:37 WBC RBC Hgb 12.2 Hct 35.0 L MCV MCH MCHC RDW Plt Count Neut % (Auto) Lymph % (Auto) [place] % (Auto) Eos % (Auto) Baso % (Auto) Neut # (Auto) Lymph # (Auto) [place] # (Auto) Eos # (Auto) Baso # (Auto) Total Counted Seg Neutrophils % Lymphocytes % (Manual) Monocytes % (Manual) Neutrophils # (Manual) RBC Morphology PT 10.7 INR 1.0 APTT Fibrinogen 379 SARS-CoV-2 (PCR) Blood Type Antibody Screen Crossmatch 01/31/21 01/31/21 01/31/21 04:37 04:37 09:08 WBC 25.8 H D RBC 3.67 L Hgb 11.8 L 10.2 L Hct 34.1 L 30.3 L MCV 92.8 MCH 32.2 MCHC 34.7 RDW 13.2 Plt Count 241 Neut % (Auto) Not Reportable Lymph % (Auto) Not Reportable [place] % (Auto) Not Reportable Eos % (Auto) Not Reportable Baso % (Auto) Not Reportable Neut # (Auto) Lymph # (Auto) Not Reportable [place] # (Auto) Not Reportable Eos # (Auto) Baso # (Auto) Not Reportable Total Counted 100 Seg Neutrophils % 95.0 H Lymphocytes % (Manual) 4.0 L Monocytes % (Manual) 1.0 L Neutrophils # (Manual) 75340 H RBC Morphology Normal morphology PT INR APTT 26 L Fibrinogen SARS-CoV-2 (PCR) Blood Type Antibody Screen Crossmatch 01/31/21 01/31/21 17:25 17:25 WBC 29.8 H RBC 2.32 L Hgb 7.3 L Hct 21.7 L MCV 93.7 MCH 31.5 MCHC 33.6 RDW 13.2 Plt Count 203 Neut % (Auto) Not Reportable Lymph % (Auto) Not Reportable [place] % (Auto) Not Reportable Eos % (Auto) Not Reportable Baso % (Auto) Not Reportable Neut # (Auto) Lymph # (Auto) Not Reportable [place] # (Auto) Not Reportable Eos # (Auto) Baso # (Auto) Not Reportable Total Counted Seg Neutrophils % Lymphocytes % (Manual) Monocytes % (Manual) Neutrophils # (Manual) RBC Morphology PT 11.4 INR 1.0 APTT Fibrinogen SARS-CoV-2 (PCR) Blood Type Antibody Screen Crossmatch Assessment & Plan Assessment and Plan (1) hemorrhage, condition: Status: Acute Plan day: 1 plan OB: routine postop care (Hysterotomy ) Comments: Tomorrow will begin removing fluid from the uterine tamponade balloon and monitoring for bleeding. Time Spent With Patient Time: Total time spent is greater than 50% in coordination of care (as documented) at patient's floor/unit and/or counseling patient: Time with patient: less than 15 minutes
[2021-01-31 18:02] LABS: Neutrophils Absolute Manual 25032 /uL (3000-5900); Total Cells Counted 100
[2021-01-31 18:03] LABS: RBC Morphology Normal Morphology
[2021-01-31] MEDS: MELATONIN 3 MG TABLET PO (21:22)
[2021-02-01] VITALS (7 sets, daily range): BP systolic 106–130; BP diastolic 63–91; PULSE 79–98; RESP 16–18; TEMP 36.5–37.9
[2021-02-01] MEDS: CLINDAMYCIN 900 MG/50 ML PIGGYBACK 50 MG IV ×3 (00:49→17:10)
[2021-02-01] MEDS: OXYCODONE IR 10 MG TABLET PO ×5 (01:20→22:20)
[2021-02-01] MEDS: KETOROLAC 30 MG/ML VIAL IV (02:54)
[2021-02-01 06:32] LABS: Mean Corpuscular HGB Conc 34.2 % (30-36); Mean Corpuscular Hemoglobin 32.2 PG (26-34); Mean Corpuscular Volume 94.1 fL (80-100); Platelet Count 135 X10^3/uL (150-400); Red Blood Cell Count 1.85 X10^6/uL (4.0-5.2); Red Cell Distribution Width 13.5 % (11.6-14.8); White Blood Cell Count 16.2 X10^3/uL (4.5-11.0)
[2021-02-01 06:36] LABS: Add Manual Diff / Slide Review YES; Hematocrit 17.4 % (36-46); Hemoglobin 5.9 g/dL (12.0-16.0)
[2021-02-01 07:32] LABS: Neutrophils Absolute Manual 12474 /uL (3000-5900); Total Cells Counted 100
[2021-02-01 07:33] LABS: Anisocytosis 1+
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
[2021-02-01] MEDS: PRENATAL VIT,CALC/IRON/FOLIC 1 TABLET 1 TAB PO (07:49)
[2021-02-01] MEDS: DOCUSATE 100 MG CAPSULE PO (07:49)
--- NOTE | 2021-02-01 08:55 | TAR.TRANSNT ---
Infusion started 1 minute late due to getting consent signed and having nurse available for cosigning
[2021-02-01] MEDS: ACETAMINOPHEN 325 MG TABLET 650 MG PO ×3 (11:43→23:47)
[2021-02-01] MEDS: IBUPROFEN 600 MG TABLET PO ×3 (11:44→23:47)
--- NOTE | 2021-02-01 12:28 | TAR.TRANSNT ---
INfusion started late due to computer malfunction and unable to complete verification process without computer
[2021-02-01 18:51] LABS: Hematocrit 25.5 % (36-46); Hemoglobin 8.8 g/dL (12.0-16.0)
[2021-02-01] MEDS: MELATONIN 3 MG TABLET PO (22:37)
[2021-02-02] MEDS: OXYCODONE IR 10 MG TABLET PO ×4 (01:58→15:07)
[2021-02-02] MEDS: CLINDAMYCIN 900 MG/50 ML PIGGYBACK 50 MG IV ×2 (01:59→10:48)
[2021-02-02] MEDS: IBUPROFEN 600 MG TABLET PO ×2 (05:30→12:08)
[2021-02-02] MEDS: ACETAMINOPHEN 325 MG TABLET 650 MG PO ×2 (05:30→12:09)
[2021-02-02 06:45] LABS: Estimated Glomerular Filt Rate > 60.0 mL/min (>60)
[2021-02-02 10:18] VITALS: BP 128/90; PULSE 86; RESP 16; TEMP 37.3
[2021-02-02] MEDS: DOCUSATE 100 MG CAPSULE PO (10:46)
[2021-02-02] MEDS: PRENATAL VIT,CALC/IRON/FOLIC 1 TABLET 1 TAB PO (10:46)
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
[2021-02-02 14:26] VITALS: BP 128/90; PULSE 86; RESP 16; TEMP 37.3
== END 2021-02-02 16:25 | disposition home or self-care (01) | DRG 541 ==
PROVIDERS: Family Medicine; Admitting Provider Specialist; PCP Nurse Practitioner Family; Referring Provider Specialist; Visit Provider Specialist
PROC: (CPT 58120; principal; 2021-01-30 22:30)
PROC: 0WJJ0ZZ Inspection of Pelvic Cavity, Open Approach (ICD-10-PCS; CPT 49000; principal; 2021-01-31 04:45)
DX: O72.0 Third-stage hemorrhage (principal); Z37.0 Single live birth; Z3A.40 40 weeks gestation of pregnancy; O70.0 First degree perineal laceration during delivery; O71.82 Other specified trauma to perineum and vulva; Z20.822 Contact with and (suspected) exposure to COVID-19; O90.81 Anemia of the puerperium; D62 Acute posthemorrhagic anemia; O43.213 Placenta accreta, third trimester
CPT/HCPCS: 36415; 36430; 59025; 59050; 59160; 59409; 59899; 82565; 85007; 85014; 85018; 85025; 85384; 85610; 85730; 86850; 86900; 86901; 87635; C9803; P9016; G0379; J0330; J1100; J1170; J1885; J2210; J2405; J2590; J2704; J3010; S0191